=== PATIENT | female | born 1950 | race Caucasian/White ===

== ENCOUNTER 2016-11-12 08:02 | Emergency (ER) | payer OTHER ==
[~2016-11-12] VITALS: Ht 157.5 cm; Wt 72.7 kg
[~2016-11-12 08:02] MED LIST: ASPIR 8181 M1 PO; Aspirin E.C. PO; CHOLESTEROL MED; FISH OIL SOFTG1 EACH PO; LANTUS 10100 UNITS/ SC; LEVAQUIN500 MG PO; LOFIBRA54 MG PO; METFORMIN; METOPROL; NOVOLOG MI100 UNIT/4; QUINAPRIL; SEROQUEL400 MG PO; ZOCOR80 MG PO; [UNRECOGNIZED DRUG - SUPPLY]
[2016-11-12] MEDS ORDERED: ELIQUIS5 MG PO (08:13)
[2016-11-12] MEDS ORDERED: LOPRESSOR25 MG PO (08:14)
[2016-11-12] MEDS ORDERED: NOVOLOG 10100 UNITS/ SC ×2 (08:14→08:16)
[2016-11-12] MEDS ORDERED: LANTUS 10100 UNITS/ SC (08:17)
[2016-11-12 08:20] LABS: POINT-OF-CARE METER ID UU13113702
[2016-11-12 08:45] LABS: EOSINOPHIL (%) 0 % (0-5); HEMATOCRIT 37.1 % (36.0-46.0); IMMATURE GRANULOCYTE (%) 0.5 % (0.0-0.7); IMMATURE GRANULOCYTE COUNT 0.1 K/uL; LYMPHOCYTE COUNT 0.6 K/uL (1.0-2.8); MCH 28.2 PG (29.0-34.0); MCHC 33.7 G/DL (30.0-36.0); MCV 83.7 FL (83-99); MEAN PLAT.VOLUME 9.6 uM^3 (9.5-12.4); MONOCYTE (%) 1.4 % (3-12); MONOCYTE COUNT 0.2 K/uL (0-0.8); NEUTROPHIL (%) 92.6 % (45-76); PLATELET COUNT 154 K/uL (156-360); RBC DIS.WIDTH-CV 14.3 % (11.8-14.6); RBC DIS.WIDTH-SD 43.4 % (39-53); RED BLOOD COUNT 4.43 M/uL (3.80-5.20); WHITE BLOOD COUNT 10.8 K/uL (4.1-10.2)
[2016-11-12 08:55] LABS: CHLORIDE 100 mEq/L (99-109); POTASSIUM 3.6 mEq/L (3.7-5.4); SODIUM 137 mEq/L (136-147)
[2016-11-12 08:57] LABS: GLUCOSE 88 mg/dL (70-99)
[2016-11-12 08:58] LABS: ANION GAP 15 MEQ/L (2-14)
[2016-11-12 09:01] LABS: GFR ESTIMATE (CALCULATED) 53 mL/min/; UREA NITROGEN (BUN) 29 mg/dL (9-23)
[2016-11-12 09:40] LABS: ADD MIUA? YES; BILIRUBIN SMALL; BLOOD LARGE; COLOR AMBER ((YELLOW)); GLUCOSE (STRIP) NEGATIVE; KETONES 5; LEUKOCYTES SMALL; NITRITE NEGATIVE; PROTEIN (STRIP) 30; SPECIFIC GRAVITY 1.021 (1.000-1.030)
[2016-11-12 09:41] LABS: POINT-OF-CARE METER ID UU13113702
[2016-11-12 09:58] LABS: BACTERIA 4+ /HPF; CASTS NONE SEEN /LPF; CRYSTALS NONE SEEN; EPITHELIAL CELLS 2+ /HPF; MUCUS NONE SEEN /LPF; RED BLOOD CELLS 30-40 /HPF (0-5)
[2016-11-12 10:54] LABS: POINT-OF-CARE METER ID UU13113702
[2016-11-12] MEDS ORDERED: CIPRO500 MG PO (11:13)
[2016-11-12 11:37] VITALS: BP 125/67
== END 2016-11-12 11:38 | disposition home or self-care (01) ==
LOC: EME 08:02
PROVIDERS: Emergency Medicine
DX: E11.649 Type 2 diabetes mellitus with hypoglycemia without coma (principal); N39.0 Urinary tract infection, site not specified; E78.5 Hyperlipidemia, unspecified; F31.9 Bipolar disorder, unspecified; Z95.0 Presence of cardiac pacemaker; Z79.82 Long term (current) use of aspirin; Z79.4 Long term (current) use of insulin
CPT/HCPCS: 80048; 81003; 82948; 85025; 87077; 87086; 87186; 99281; 99284

== ENCOUNTER 2016-11-21 18:17 | Inpatient (IN) | payer OTHER ==
[~2016-11-21] VITALS: Ht 157.5 cm; Wt 75.5 kg
[~2016-11-21 18:17] MED LIST changes: +CIPRO500 MG PO; +ELIQUIS5 MG PO; +LOPRESSOR25 MG PO; +NOVOLOG 10100 UNITS/ SC
[2016-11-21 19:23] LABS: HEMATOCRIT 29.1 % (36.0-46.0); MCH 28.8 PG (29.0-34.0); MCV 84.6 FL (83-99); RBC DIS.WIDTH-CV 14.8 % (11.8-14.6); RBC DIS.WIDTH-SD 45.7 % (39-53); WHITE BLOOD COUNT 12.5 K/uL (4.1-10.2)
[2016-11-21 19:25] LABS: INTER. NORMALIZED RATIO 2.5; PROTHROMBIN TIME 28.8 SEC (10.2-12.9)
[2016-11-21 19:28] LABS: CHLORIDE 105 mEq/L (99-109); POTASSIUM 3.9 mEq/L (3.7-5.4); SODIUM 135 mEq/L (136-147)
[2016-11-21 19:30] LABS: GLUCOSE 225 mg/dL (70-99)
[2016-11-21 19:31] LABS: ANION GAP 9 MEQ/L (2-14)
[2016-11-21 19:34] LABS: GFR ESTIMATE (CALCULATED) 44 mL/min/; UREA NITROGEN (BUN) 18 mg/dL (9-23)
[2016-11-21 20:00] LABS: RED BLOOD COUNT 3.44 M/uL (3.80-5.20)
[2016-11-21 20:20] LABS: PLAT.SUFFICIENCY DECREASED
[2016-11-21 20:21] LABS: PLATELET COUNT 91 K/uL (156-360)
[2016-11-21 20:48] LABS: INTER. NORMALIZED RATIO 2.4; PROTHROMBIN TIME 27.1 SEC (10.2-12.9)
[2016-11-21 20:51] LABS: PTT 28.3 SEC (25-37)
[2016-11-21 21:10] VITALS: BP 98/57
[2016-11-21 21:10] LABS: TROP-I INTERPRETATION NEGATIVE; TROPONIN-I 0.03 ng/mL (0.0-0.30)
[2016-11-21] MEDS ORDERED: LANTUS 10100 UNITS/ SC (21:29)
[2016-11-21 21:35] VITALS: BP 98/57
[2016-11-21 23:39] LABS: ADD MIUA? YES; BILIRUBIN NEGATIVE; BLOOD MODERATE; COLOR YELLOW ((YELLOW)); GLUCOSE (STRIP) >=500; KETONES 20; LEUKOCYTES LARGE; NITRITE NEGATIVE; PROTEIN (STRIP) 100; SPECIFIC GRAVITY 1.015 (1.000-1.030)
[2016-11-21 23:52] LABS: BACTERIA 3+ /HPF; EPITHELIAL CELLS 2+ /HPF; HYALINE CASTS 0-5 /LPF; MUCUS 3+ /LPF; RED BLOOD CELLS 15-20 /HPF (0-5); UCUL ADDED? YES; WHITE BLOOD CELLS 40-50 /HPF (0-5)
[2016-11-22 00:09] LABS: POINT-OF-CARE METER ID UU14208753
[2016-11-22 00:10] VITALS: BP 93/55
[2016-11-22 03:31] VITALS: BP 98/54
[2016-11-22 05:44] LABS: HEMATOCRIT 25.9 % (36.0-46.0); MCHC 33.6 G/DL (30.0-36.0); MCV 86.3 FL (83-99); PLATELET COUNT 85 K/uL (156-360); RBC DIS.WIDTH-CV 15.3 % (11.8-14.6); WHITE BLOOD COUNT 8.2 K/uL (4.1-10.2)
[2016-11-22 06:07] LABS: ANION GAP 10 MEQ/L (2-14); CHLORIDE 105 MEQ/L (99-109); GFR ESTIMATE (CALCULATED) 53 mL/min/; GLUCOSE 228 mg/dL (70-99); POTASSIUM 3.5 MEQ/L (3.7-5.4); SAMPLE HEMOLYSIS CHECK 0; SAMPLE ICTERIC CHECK 0; SAMPLE LIPEMIA CHECK 0; SODIUM 137 MEQ/L (136-147); UREA NITROGEN (BUN) 19 mg/dL (9-23)
[2016-11-22 06:11] LABS: TROP-I INTERPRETATION NEGATIVE; TROPONIN-I 0.03 ng/mL (0.0-0.30)
[2016-11-22 06:21] LABS: POINT-OF-CARE METER ID UU14208753
[2016-11-22 08:00] VITALS: BP 127/62
[2016-11-22 12:01] VITALS: BP 126/63
[2016-11-22 15:58] VITALS: BP 118/64
[2016-11-22 18:46] LABS: POINT-OF-CARE METER ID UU14208753
[2016-11-22 19:48] VITALS: BP 121/59
[2016-11-22 22:51] LABS: POINT-OF-CARE METER ID UU14117124
[2016-11-23] VITALS (7 sets, daily range): BP systolic 117–156; BP diastolic 59–80
[2016-11-23 05:18] LABS: HEMATOCRIT 25.7 % (36.0-46.0); MCH 28.5 PG (29.0-34.0); MCHC 33.1 G/DL (30.0-36.0); MCV 86.2 FL (83-99); MEAN PLAT.VOLUME 10.6 uM^3 (9.5-12.4); PLATELET COUNT 101 K/uL (156-360); RBC DIS.WIDTH-CV 15.5 % (11.8-14.6); RED BLOOD COUNT 2.98 M/uL (3.80-5.20); WHITE BLOOD COUNT 7.5 K/uL (4.1-10.2)
[2016-11-23 05:23] LABS: INTER. NORMALIZED RATIO 1.5; PROTHROMBIN TIME 17.3 SEC (10.2-12.9)
[2016-11-23 05:47] LABS: ANION GAP 9 MEQ/L (2-14); CHLORIDE 107 MEQ/L (99-109); GFR ESTIMATE (CALCULATED) > 59 mL/min/; GLUCOSE 231 mg/dL (70-99); POTASSIUM 4.1 MEQ/L (3.7-5.4); SAMPLE HEMOLYSIS CHECK 0; SAMPLE ICTERIC CHECK 0; SAMPLE LIPEMIA CHECK 0; SODIUM 138 MEQ/L (136-147); UREA NITROGEN (BUN) 15 mg/dL (9-23)
[2016-11-23 08:32] LABS: POINT-OF-CARE METER ID UU14188577
[2016-11-23 11:26] LABS: POINT-OF-CARE METER ID UU14188577
[2016-11-23 16:35] LABS: POINT-OF-CARE METER ID UU14117124
[2016-11-23 21:53] LABS: POINT-OF-CARE METER ID UU14188577
[2016-11-24 04:31] VITALS: BP 113/55
[2016-11-24 06:05] LABS: HEMATOCRIT 23.9 % (36.0-46.0); MCH 28.2 PG (29.0-34.0); MCHC 33.1 G/DL (30.0-36.0); MCV 85.4 FL (83-99); MEAN PLAT.VOLUME 10.5 uM^3 (9.5-12.4); PLATELET COUNT 109 K/uL (156-360); RBC DIS.WIDTH-CV 15.2 % (11.8-14.6); RBC DIS.WIDTH-SD 46.9 % (39-53); WHITE BLOOD COUNT 7.5 K/uL (4.1-10.2)
[2016-11-24 06:22] LABS: POINT-OF-CARE METER ID UU14208753
[2016-11-24 06:23] LABS: ANION GAP 9 MEQ/L (2-14); CHLORIDE 103 MEQ/L (99-109); GFR ESTIMATE (CALCULATED) > 59 mL/min/; GLUCOSE 177 mg/dL (70-99); POTASSIUM 3.7 MEQ/L (3.7-5.4); SAMPLE HEMOLYSIS CHECK 0; SAMPLE ICTERIC CHECK 0; SAMPLE LIPEMIA CHECK 0; SODIUM 135 MEQ/L (136-147); UREA NITROGEN (BUN) 10 mg/dL (9-23)
[2016-11-24 06:29] LABS: INTER. NORMALIZED RATIO 1.4; PROTHROMBIN TIME 16.1 SEC (10.2-12.9)
[2016-11-24 06:32] LABS: PTT 29.4 SEC (25-37)
[2016-11-24 08:15] VITALS: BP 161/74
[2016-11-24 12:27] LABS: POINT-OF-CARE METER ID UU13113675
[2016-11-24 13:15] VITALS: BP 122/63
[2016-11-24 16:00] VITALS: BP 121/60
[2016-11-24 16:24] LABS: POINT-OF-CARE METER ID UU14188577
[2016-11-24 19:50] VITALS: BP 112/56
[2016-11-24 19:53] LABS: HEMATOCRIT 21.2 % (36.0-46.0); MCV 86.5 FL (83-99)
[2016-11-24 21:34] LABS: POINT-OF-CARE METER ID UU14188577
[2016-11-24 23:28] VITALS: BP 107/55
[2016-11-25] VITALS (7 sets, daily range): BP systolic 109–150; BP diastolic 51–90
[2016-11-25 06:26] LABS: POINT-OF-CARE METER ID UU14188577
[2016-11-25 09:49] LABS: HEMATOCRIT 24.8 % (36.0-46.0); MCV 86.7 FL (83-99)
== END 2016-11-25 11:05 | disposition short-term general hospital (02) | DRG 493 ==
LOC: EME → EDBD 18:17 → EDOF 20:20 → 3EAST 20:20 → ENRESERV 20:21 → 3EAST 20:56
PROVIDERS: Emergency Medicine; Hospitalist; Internal Medicine; Nurse Practitioner Family
PROC: 0QHJ35Z Insertion of External Fixation Device into Right Fibula, Percutaneous Approach (ICD-10-PCS; principal; 2016-11-24)
PROC: 30233N1 Transfusion of Nonautologous Red Blood Cells into Peripheral Vein, Percutaneous Approach (ICD-10-PCS; 2016-11-25)
DX: S82.251A Displaced comminuted fracture of shaft of right tibia, initial encounter for closed fracture (principal); N39.0 Urinary tract infection, site not specified; S82.451A Displaced comminuted fracture of shaft of right fibula, initial encounter for closed fracture; W01.0XXA Fall on same level from slipping, tripping and stumbling without subsequent striking against object, initial encounter; I95.9 Hypotension, unspecified; R23.8 Other skin changes; E16.2 Hypoglycemia, unspecified; I42.9 Cardiomyopathy, unspecified; I48.0 Paroxysmal atrial fibrillation; I10 Essential (primary) hypertension; E78.5 Hyperlipidemia, unspecified; I25.10 Atherosclerotic heart disease of native coronary artery without angina pectoris; F31.9 Bipolar disorder, unspecified; Y92.009 Unspecified place in unspecified non-institutional (private) residence as the place of occurrence of the external cause; E66.9 Obesity, unspecified; Z86.79 Personal history of other diseases of the circulatory system; Z79.01 Long term (current) use of anticoagulants; Z86.73 Personal history of transient ischemic attack (TIA), and cerebral infarction without residual deficits; Z86.74 Personal history of sudden cardiac arrest; Z95.810 Presence of automatic (implantable) cardiac defibrillator; Z68.30 Body mass index [BMI] 30.0-30.9, adult
CPT/HCPCS: 71010; 73590; 76000; 80048; 81003; 82948; 83605; 84484; 85014; 85018; 85027; 85610; 85730; 86850; 86900; 86901; 86920; 87040; 87077; 87086; 87186; 93005; 99281; 99285; C1713; J0330; J0690; J0696; J1170; J1644; J1815; J2405; J3010; J7030; J7050; J7120; P9016

== ENCOUNTER 2016-12-19 22:16 | Inpatient (IN) | payer OTHER ==
[~2016-12-19] VITALS: Ht 160 cm; Wt 71.3 kg
[2016-12-19 22:52] LABS: HEMATOCRIT 40.9 % (36.0-46.0); MCH 28.1 PG (29.0-34.0); MCHC 33.5 G/DL (30.0-36.0); MEAN PLAT.VOLUME 10.6 uM^3 (9.5-12.4); RBC DIS.WIDTH-CV 15.3 % (11.8-14.6); RBC DIS.WIDTH-SD 46.5 % (39-53); WHITE BLOOD COUNT 10.4 K/uL (4.1-10.2)
[2016-12-19 22:53] LABS: PLATELET COUNT 225 K/uL (156-360); RED BLOOD COUNT 4.87 M/uL (3.80-5.20)
[2016-12-19 23:01] LABS: CHLORIDE 100 mEq/L (99-109); POTASSIUM 3.7 mEq/L (3.7-5.4); SODIUM 135 mEq/L (136-147)
[2016-12-19 23:03] LABS: GLUCOSE 137 mg/dL (70-99)
[2016-12-19 23:04] LABS: ANION GAP 14 MEQ/L (2-14)
[2016-12-19 23:05] LABS: TOTAL BILIRUBIN 1.1 mg/dL (0.0-1.0)
[2016-12-19 23:07] LABS: ALKALINE PHOSPHATASE 110 IU/L (3-129); GFR ESTIMATE (CALCULATED) > 59 mL/min/
[2016-12-19 23:08] LABS: UREA NITROGEN (BUN) 7 mg/dL (9-23)
[2016-12-19 23:26] LABS: TROP-I INTERPRETATION NEGATIVE; TROPONIN-I 0.02 ng/mL (0.0-0.30)
[2016-12-19 23:31] LABS: LIPASE 40 U/L (1.0-51.0)
[2016-12-19 23:47] LABS: ADD MIUA? YES; BILIRUBIN NEGATIVE; BLOOD SMALL; COLOR YELLOW ((YELLOW)); GLUCOSE (STRIP) NEGATIVE; KETONES 5; LEUKOCYTES SMALL; NITRITE POSITIVE; PROTEIN (STRIP) 100; SPECIFIC GRAVITY 1.013 (1.000-1.030); UROBILINOGEN 0.2 MG/DL (0.2-1.0)
[2016-12-19 23:55] LABS: BACTERIA 3+ /HPF; EPITHELIAL CELLS RARE /HPF; MUCUS TRACE /LPF; UCUL ADDED? YES; WHITE BLOOD CELLS TNTC /HPF (0-5)
[2016-12-20] MEDS ORDERED: SEROQUEL100 MG PO (02:45)
[2016-12-20] MEDS ORDERED: COLACE100 MG PO (02:46)
[2016-12-20] MEDS ORDERED: LOVENOX30 MG/0.3 SC (02:47)
[2016-12-20] MEDS ORDERED: ZANTAC150 MG PO (02:48)
[2016-12-20] MEDS ORDERED: SENNA LAX8.6 MG PO (02:49)
[2016-12-20] MEDS ORDERED: FEOSOL325 MG PO (02:50)
[2016-12-20] MEDS ORDERED: TYLENOL REGULA325 MG PO (02:55)
[2016-12-20] MEDS ORDERED: ROXICODONE5 MG PO (02:55)
[2016-12-20 03:43] VITALS: BP 102/73
[2016-12-20 05:37] LABS: HEMATOCRIT 38.9 % (36.0-46.0); MCHC 32.6 G/DL (30.0-36.0); MCV 85.9 FL (83-99); MEAN PLAT.VOLUME 10.2 uM^3 (9.5-12.4); PLATELET COUNT 180 K/uL (156-360); RBC DIS.WIDTH-CV 15.5 % (11.8-14.6); RBC DIS.WIDTH-SD 48.8 % (39-53); RED BLOOD COUNT 4.53 M/uL (3.80-5.20); WHITE BLOOD COUNT 8.4 K/uL (4.1-10.2)
[2016-12-20 05:55] LABS: TROP-I INTERPRETATION NEGATIVE; TROPONIN-I 0.03 ng/mL (0.0-0.30)
[2016-12-20 06:18] LABS: ALKALINE PHOSPHATASE 92 IU/L (3-129); ANION GAP 11 MEQ/L (2-14); CHLORIDE 102 MEQ/L (99-109); GFR ESTIMATE (CALCULATED) > 59 mL/min/; GLUCOSE 134 mg/dL (70-99); POTASSIUM 3.8 MEQ/L (3.7-5.4); SAMPLE HEMOLYSIS CHECK 0; SAMPLE ICTERIC CHECK 0; SAMPLE LIPEMIA CHECK 0; SODIUM 138 MEQ/L (136-147); TOTAL BILIRUBIN 0.8 MG/DL (0.0-1.0); UREA NITROGEN (BUN) 7 mg/dL (9-23)
[2016-12-20 07:39] LABS: POINT-OF-CARE METER ID UU14162513
[2016-12-20 09:45] VITALS: BP 178/82
[2016-12-20 11:45] VITALS: BP 189/94
[2016-12-20] MEDS ORDERED: K-DUR20 MEQ PO (11:49)
[2016-12-20] MEDS ORDERED: ZOFRAN4 MG PO (11:50)
[2016-12-20] MEDS ORDERED: MILK OF MAGN PO (11:51)
[2016-12-20] MEDS ORDERED: MIRALAX17 GM PO (11:51)
[2016-12-20] MEDS ORDERED: DULCOLAX10 MG PR (11:52)
[2016-12-20] MEDS ORDERED: CYANOCOBAL1000 MCG/2 SQ (11:53)
[2016-12-20] MEDS ORDERED: NOVOLOG PE100 UNITS/ SC (11:54)
[2016-12-20 12:34] LABS: POINT-OF-CARE METER ID UU14162513
[2016-12-20 12:41] LABS: TROP-I INTERPRETATION NEGATIVE; TROPONIN-I 0.02 ng/mL (0.0-0.30)
[2016-12-20 15:33] VITALS: BP 179/100
[2016-12-20 17:02] LABS: POINT-OF-CARE METER ID UU13113700
[2016-12-20 21:37] VITALS: BP 140/74
[2016-12-20 21:45] LABS: POINT-OF-CARE METER ID UU13113700
[2016-12-20 23:22] VITALS: BP 157/90
[2016-12-21] VITALS (7 sets, daily range): BP systolic 137–192; BP diastolic 75–84
[2016-12-21 05:42] LABS: BASOPHIL COUNT 0.1 K/uL (0-0.1); EOSINOPHIL (%) 0.4 % (0-5); EOSINOPHIL COUNT 0.1 K/uL (0-0.3); HEMATOCRIT 37.4 % (36.0-46.0); IMMATURE GRANULOCYTE (%) 0.4 % (0.0-0.7); IMMATURE GRANULOCYTE COUNT 0.1 K/uL; INSTRUMENT ABS NEUTROPHIL CT 9.3 K/uL; LYMPHOCYTE COUNT 1.3 K/uL (1.0-2.8); MCH 27.8 PG (29.0-34.0); MCHC 32.1 G/DL (30.0-36.0); MCV 86.6 FL (83-99); MEAN PLAT.VOLUME 10.4 uM^3 (9.5-12.4); MONOCYTE COUNT 0.7 K/uL (0-0.8); NEUTROPHIL (%) 81.5 % (45-76); NEUTROPHIL COUNT 9.3 K/uL (1.8-6.4); PLATELET COUNT 157 K/uL (156-360); RBC DIS.WIDTH-CV 15.4 % (11.8-14.6); RBC DIS.WIDTH-SD 49.2 % (39-53); RED BLOOD COUNT 4.32 M/uL (3.80-5.20); WHITE BLOOD COUNT 11.4 K/uL (4.1-10.2)
[2016-12-21 06:08] LABS: ANION GAP 10 MEQ/L (2-14); CHLORIDE 103 MEQ/L (99-109); GFR ESTIMATE (CALCULATED) > 59 mL/min/; GLUCOSE 154 mg/dL (70-99); POTASSIUM 3.8 MEQ/L (3.7-5.4); SAMPLE HEMOLYSIS CHECK 0; SAMPLE ICTERIC CHECK 0; SAMPLE LIPEMIA CHECK 0; SODIUM 138 MEQ/L (136-147); UREA NITROGEN (BUN) 10 mg/dL (9-23)
[2016-12-21 08:43] LABS: POINT-OF-CARE METER ID UU13113700
[2016-12-21 13:03] LABS: POINT-OF-CARE METER ID UU13113700
[2016-12-21 17:16] LABS: POINT-OF-CARE METER ID UU13113700
[2016-12-21 21:19] LABS: POINT-OF-CARE METER ID UU13113700
[2016-12-22 03:34] VITALS: BP 145/94
[2016-12-22 05:59] LABS: BASOPHIL COUNT 0.1 K/uL (0-0.1); EOSINOPHIL (%) 1.5 % (0-5); EOSINOPHIL COUNT 0.1 K/uL (0-0.3); HEMATOCRIT 36.5 % (36.0-46.0); IMMATURE GRANULOCYTE (%) 0.4 % (0.0-0.7); INSTRUMENT ABS NEUTROPHIL CT 6.2 K/uL; LYMPHOCYTE COUNT 1.3 K/uL (1.0-2.8); MCH 27.7 PG (29.0-34.0); MCHC 32.3 G/DL (30.0-36.0); MCV 85.7 FL (83-99); MEAN PLAT.VOLUME 10.1 uM^3 (9.5-12.4); MONOCYTE (%) 5.3 % (3-12); MONOCYTE COUNT 0.4 K/uL (0-0.8); NEUTROPHIL (%) 76.6 % (45-76); NEUTROPHIL COUNT 6.2 K/uL (1.8-6.4); PLATELET COUNT 124 K/uL (156-360); RBC DIS.WIDTH-CV 15.2 % (11.8-14.6); RED BLOOD COUNT 4.26 M/uL (3.80-5.20); WHITE BLOOD COUNT 8.1 K/uL (4.1-10.2)
[2016-12-22 08:09] VITALS: BP 189/86
[2016-12-22 12:18] VITALS: BP 137/67
[2016-12-22] MEDS ORDERED: CEFTIN500 MG PO (12:32)
[2016-12-22] MEDS ORDERED: AMLODIPINE BESYL5 MG PO (12:32)
[2016-12-22] MEDS ORDERED: LOPRESSOR25 MG PO (12:32)
[2016-12-22 13:15] VITALS: BP 126/72
== END 2016-12-22 15:54 | DRG 690 ==
LOC: EME → EDBD 22:16 → EME 22:16 → EDOF 12-20 01:48 → ENRESERV 12-20 01:51 → 5WEST 12-20 03:31 → CANRESERV 12-21 10:21 → ENRESERV 12-21 10:21 → 5WEST 12-22 15:54
PROVIDERS: Emergency Medicine; Internal Medicine; Student in an Organized Health Care Education/Training Program
DX: N39.0 Urinary tract infection, site not specified (principal); I10 Essential (primary) hypertension; E11.65 Type 2 diabetes mellitus with hyperglycemia; I48.91 Unspecified atrial fibrillation; F31.9 Bipolar disorder, unspecified; E78.5 Hyperlipidemia, unspecified; Z87.440 Personal history of urinary (tract) infections; Z86.73 Personal history of transient ischemic attack (TIA), and cerebral infarction without residual deficits; Z95.810 Presence of automatic (implantable) cardiac defibrillator; Z90.49 Acquired absence of other specified parts of digestive tract
CPT/HCPCS: 80048; 80053; 81003; 82948; 83690; 84484; 85025; 85027; 87086; 93005; 99281; 99285; G0378; J0696; J1650; J2405; J7030; J7050

== ENCOUNTER 2017-04-08 11:03 | Inpatient (IN) | payer OTHER ==
[~2017-04-08] VITALS: Ht 157.5 cm; Wt 57.5 kg
[2017-04-08] VITALS (10 sets, daily range): BP systolic 77–105; BP diastolic 43–57
[~2017-04-08 11:03] MED LIST changes: +AMLODIPINE BESYL5 MG PO; +CEFTIN500 MG PO; +COLACE100 MG PO; +CYANOCOBAL1000 MCG/2 SQ; +DULCOLAX10 MG PR; +FEOSOL325 MG PO; +K-DUR20 MEQ PO; +LOVENOX30 MG/0.3 SC; +MILK OF MAGN PO; +MIRALAX17 GM PO; +NOVOLOG PE100 UNITS/ SC; +ROXICODONE5 MG PO; +SENNA LAX8.6 MG PO; +SEROQUEL100 MG PO; +TYLENOL REGULA325 MG PO; +ZANTAC150 MG PO; +ZOFRAN4 MG PO
[2017-04-08 11:32] LABS: BASOPHIL (%) 0.1 % (0-1); EOSINOPHIL (%) 0 % (0-5); HEMATOCRIT 16.7 % (36.0-46.0); IMMATURE GRANULOCYTE (%) 0.4 % (0.0-0.7); LYMPHOCYTE (%) 4.7 % (15-42); LYMPHOCYTE COUNT 0.4 K/uL (1.0-2.8); MCH 27.1 PG (29.0-34.0); MCHC 32.9 G/DL (30.0-36.0); MCV 82.3 FL (83-99); MONOCYTE (%) 3.6 % (3-12); MONOCYTE COUNT 0.3 K/uL (0-0.8); NEUTROPHIL (%) 91.2 % (45-76); NEUTROPHIL COUNT 8.3 K/uL (1.8-6.4); PLATELET COUNT 148 K/uL (156-360); RBC DIS.WIDTH-CV 16.5 % (11.8-14.6); RBC DIS.WIDTH-SD 49.1 % (39-53); RED BLOOD COUNT 2.03 M/uL (3.80-5.20); WHITE BLOOD COUNT 9.1 K/uL (4.1-10.2)
[2017-04-08 11:33] LABS: HEMOGLOBIN 5.5 G/DL (11.9-15.5)
[2017-04-08 11:35] LABS: PTT 26.5 SEC (25-37)
[2017-04-08 11:47] LABS: BASE EXCESS -3.8 mEq/L (-3 to +3); PCO2 28 mm Hg (35-45); PO2 123 mm Hg (80-100); pH 7.44 (7.35-7.45)
[2017-04-08 11:48] LABS: COMMENTS - BLOOD GASES A+C+; FI02 0.21 %; SITE LR; TOTAL RESP RATE 19 resp/min
[2017-04-08 11:49] LABS: TROP-I INTERPRETATION NEGATIVE; TROPONIN-I 0.01 ng/mL (0.0-0.30)
[2017-04-08 11:56] LABS: ALBUMIN 3.4 g/dL (3.2-4.8); CHLORIDE 96 mEq/L (99-109); SODIUM 128 mEq/L (136-147)
[2017-04-08 11:58] LABS: TOTAL PROTEIN 5.8 g/dL (6.4-8.3)
[2017-04-08 12:00] LABS: TOTAL BILIRUBIN 0.6 mg/dL (0.0-1.0)
[2017-04-08 12:02] LABS: ALKALINE PHOSPHATASE 67 IU/L (3-129); CREATININE 1.8 mg/dL (0.6-1.3); GFR ESTIMATE (CALCULATED) 30 mL/min/
[2017-04-08 12:03] LABS: UREA NITROGEN (BUN) 84 mg/dL (9-23)
[2017-04-08 12:04] LABS: AST (GOT) 7 IU/L (2-34); DIRECT BILIRUBIN 0.4 mg/dL (0.0-0.3)
[2017-04-08 12:05] LABS: ALT (GPT) 6 IU/L (3-49); LIPASE 45 U/L (1.0-51.0)
[2017-04-08 12:06] LABS: GLUCOSE 614 mg/dL (70-99)
[2017-04-08 15:22] LABS: BASE EXCESS -4.4 mEq/L (-3 to +3); BICARBONATE 19.6 mEq/L (22-26); CARBOXY HGB 1.9 % (0-5); METHEMOGLOBIN 0.9 % (0-1.5); PCO2 31 mm Hg (35-45); pH 7.41 (7.35-7.45)
[2017-04-08 15:23] LABS: COMMENTS - BLOOD GASES A+C+; PO2 94 mm Hg (80-100); SITE LR; TOTAL RESP RATE 15 resp/min
[2017-04-08 16:56] LABS: BASOPHIL (%) 0.1 % (0-1); EOSINOPHIL (%) 0 % (0-5); HEMATOCRIT 28.2 % (36.0-46.0); IMMATURE GRANULOCYTE (%) 0.8 % (0.0-0.7); LYMPHOCYTE (%) 6.9 % (15-42); LYMPHOCYTE COUNT 0.8 K/uL (1.0-2.8); MCH 29.4 PG (29.0-34.0); MONOCYTE (%) 5.6 % (3-12); MONOCYTE COUNT 0.7 K/uL (0-0.8); NEUTROPHIL (%) 86.6 % (45-76); PLATELET COUNT 115 K/uL (156-360); RBC DIS.WIDTH-CV 15.6 % (11.8-14.6); RBC DIS.WIDTH-SD 49.1 % (39-53); WHITE BLOOD COUNT 11.5 K/uL (4.1-10.2)
[2017-04-08 16:57] LABS: HEMOGLOBIN 9.6 G/DL (11.9-15.5); MCV 86.5 FL (83-99); RED BLOOD COUNT 3.26 M/uL (3.80-5.20)
[2017-04-08 18:18] LABS: APPEARANCE CLOUDY ((CLEAR)); BILIRUBIN NEGATIVE; BLOOD LARGE; COLOR YELLOW ((YELLOW)); GLUCOSE (STRIP) >=500; KETONES 5; LEUKOCYTES LARGE; NITRITE POSITIVE; PROTEIN (STRIP) 30; SPECIFIC GRAVITY 1.015 (1.000-1.030); UROBILINOGEN 0.2 MG/DL (0.2-1.0)
[2017-04-08 18:25] LABS: GLUCOSE 344 mg/dL (70-99)
[2017-04-08 18:28] LABS: BACTERIA RARE /HPF; EPITHELIAL CELLS NONE SEEN /HPF; MUCUS NONE SEEN /LPF; RED BLOOD CELLS TNTC /HPF (0-5); UCUL ADDED? YES; WHITE BLOOD CELLS 20-30 /HPF (0-5)
[2017-04-08 18:30] LABS: PTT 27.9 SEC (25-37)
[2017-04-08 18:53] LABS: CHLORIDE 106 MEQ/L (99-109); POTASSIUM 3.5 MEQ/L (3.7-5.4); UREA NITROGEN (BUN) 71 mg/dL (9-23)
[2017-04-08 18:57] LABS: CREATININE 1.1 MG/DL (0.6-1.3); GFR ESTIMATE (CALCULATED) 53 mL/min/; SODIUM 137 MEQ/L (136-147)
[2017-04-08 21:31] LABS: CHLORIDE 109 MEQ/L (99-109); POTASSIUM 3.2 MEQ/L (3.7-5.4); SODIUM 139 MEQ/L (136-147)
[2017-04-08 21:47] LABS: GFR ESTIMATE (CALCULATED) 59 mL/min/; GLUCOSE 189 mg/dL (70-99); PHOSPHORUS 2.5 mg/dL (2.5-4.9); UREA NITROGEN (BUN) 64 mg/dL (9-23)
[2017-04-09] VITALS (29 sets, daily range): BP systolic 87–1631; BP diastolic 42–73
[2017-04-09 00:57] LABS: SODIUM 140 mEq/L (136-147)
[2017-04-09 00:59] LABS: GLUCOSE 186 mg/dL (70-99)
[2017-04-09 01:02] LABS: PHOSPHORUS 2.2 mg/dL (2.5-4.9)
[2017-04-09 01:03] LABS: GFR ESTIMATE (CALCULATED) 59 mL/min/
[2017-04-09 01:04] LABS: UREA NITROGEN (BUN) 58 mg/dL (9-23)
[2017-04-09 01:06] LABS: CHLORIDE 112 mEq/L (99-109)
[2017-04-09 04:52] LABS: BASOPHIL (%) 0.2 % (0-1); EOSINOPHIL (%) 0.3 % (0-5); HEMATOCRIT 24.7 % (36.0-46.0); HEMOGLOBIN 8.5 G/DL (11.9-15.5); IMMATURE GRANULOCYTE (%) 0.4 % (0.0-0.7); LYMPHOCYTE (%) 12.2 % (15-42); LYMPHOCYTE COUNT 1.1 K/uL (1.0-2.8); MCH 28.9 PG (29.0-34.0); MCHC 34.4 G/DL (30.0-36.0); MONOCYTE (%) 7.3 % (3-12); MONOCYTE COUNT 0.7 K/uL (0-0.8); NEUTROPHIL (%) 79.6 % (45-76); NEUTROPHIL COUNT 7.4 K/uL (1.8-6.4); PLATELET COUNT 98 K/uL (156-360); RBC DIS.WIDTH-CV 15.8 % (11.8-14.6); RBC DIS.WIDTH-SD 47.8 % (39-53); RED BLOOD COUNT 2.94 M/uL (3.80-5.20); WHITE BLOOD COUNT 9.3 K/uL (4.1-10.2)
[2017-04-09 05:06] LABS: CHLORIDE 113 mEq/L (99-109); SODIUM 140 mEq/L (136-147)
[2017-04-09 05:07] LABS: ALBUMIN 2.8 g/dL (3.2-4.8); CHLORIDE 113 mEq/L (99-109); POTASSIUM 3.6 mEq/L (3.7-5.4); SODIUM 140 mEq/L (136-147)
[2017-04-09 05:08] LABS: GLUCOSE 129 mg/dL (70-99); POTASSIUM 3.7 mEq/L (3.7-5.4)
[2017-04-09 05:09] LABS: GLUCOSE 130 mg/dL (70-99)
[2017-04-09 05:12] LABS: CREATININE 0.9 mg/dL (0.6-1.3); GFR ESTIMATE (CALCULATED) > 59 mL/min/; PHOSPHORUS 1.8 mg/dL (2.5-4.9)
[2017-04-09 05:13] LABS: CREATININE 0.9 mg/dL (0.6-1.3); GFR ESTIMATE (CALCULATED) > 59 mL/min/; PHOSPHORUS 1.8 mg/dL (2.5-4.9); UREA NITROGEN (BUN) 50 mg/dL (9-23)
[2017-04-09 05:14] LABS: UREA NITROGEN (BUN) 49 mg/dL (9-23)
[2017-04-09 05:23] LABS: INTER. NORMALIZED RATIO 2.3
[2017-04-09 09:35] LABS: CHLORIDE 114 MEQ/L (99-109); CREATININE 0.9 MG/DL (0.6-1.3); GFR ESTIMATE (CALCULATED) > 59 mL/min/; GLUCOSE 190 mg/dL (70-99); POTASSIUM 3.6 MEQ/L (3.7-5.4); SODIUM 141 MEQ/L (136-147); UREA NITROGEN (BUN) 46 mg/dL (9-23)
[2017-04-09 09:37] LABS: PHOSPHORUS 1.6 mg/dL (2.5-4.9)
[2017-04-09] MEDS ORDERED: SIMVASTATIN80 MG PO (11:06)
[2017-04-09] MEDS ORDERED: LOPRESSOR50 MG PO (11:06)
[2017-04-09] MEDS ORDERED: QUETIAPINE FUM100 MG PO (11:06)
[2017-04-09] MEDS ORDERED: ELIQUIS5 MG PO (11:07)
[2017-04-09] MEDS ORDERED: OXYCODONE HCL5 MG PO (11:07)
[2017-04-09 11:51] LABS: HEMOGLOBIN A1c (GLYCOHEMOGLOB) 5.9 % (Below 5.7)
[2017-04-09] MEDS ORDERED: NORVASC5 MG PO (13:22)
[2017-04-09] MEDS ORDERED: K-DUR20 MEQ PO (13:23)
[2017-04-09] MEDS ORDERED: NOVOLOG 10100 UNITS/ SC ×2 (13:23→13:24)
[2017-04-09] MEDS ORDERED: LO-DOSE ASPIRIN81 M2 PO (13:24)
[2017-04-09] MEDS ORDERED: LANTUS 10100 UNITS/ SC (13:24)
[2017-04-09] MEDS ORDERED: TUMS500 MG PO (13:25)
[2017-04-09 13:53] LABS: CHLORIDE 113 MEQ/L (99-109); CREATININE 0.9 MG/DL (0.6-1.3); GFR ESTIMATE (CALCULATED) > 59 mL/min/; GLUCOSE 145 mg/dL (70-99); PHOSPHORUS 1.5 mg/dL (2.5-4.9); POTASSIUM 3.5 MEQ/L (3.7-5.4); SODIUM 144 MEQ/L (136-147); UREA NITROGEN (BUN) 40 mg/dL (9-23)
[2017-04-09 15:28] LABS: INTER. NORMALIZED RATIO 1.8
[2017-04-09 15:42] LABS: CHLORIDE 114 MEQ/L (99-109); POTASSIUM 3.6 MEQ/L (3.7-5.4); SODIUM 143 MEQ/L (136-147)
[2017-04-09 15:48] LABS: CREATININE 0.8 MG/DL (0.6-1.3); GFR ESTIMATE (CALCULATED) > 59 mL/min/; GLUCOSE 136 mg/dL (70-99); UREA NITROGEN (BUN) 35 mg/dL (9-23)
[2017-04-09 15:52] LABS: PHOSPHORUS 2.5 mg/dL (2.5-4.9)
[2017-04-09 20:59] LABS: HEMATOCRIT 22.6 % (36.0-46.0); HEMOGLOBIN 7.5 G/DL (11.9-15.5); MCH 28.3 PG (29.0-34.0); MCHC 33.2 G/DL (30.0-36.0); MCV 85.3 FL (83-99); PLATELET COUNT 81 K/uL (156-360); RBC DIS.WIDTH-SD 49.7 % (39-53); RED BLOOD COUNT 2.65 M/uL (3.80-5.20); WHITE BLOOD COUNT 5.8 K/uL (4.1-10.2)
[2017-04-09 21:38] LABS: CHLORIDE 112 MEQ/L (99-109); CREATININE 0.7 MG/DL (0.6-1.3); GFR ESTIMATE (CALCULATED) > 59 mL/min/; GLUCOSE 188 mg/dL (70-99); POTASSIUM 3.3 MEQ/L (3.7-5.4); SODIUM 143 MEQ/L (136-147); UREA NITROGEN (BUN) 26 mg/dL (9-23)
[2017-04-10] VITALS (22 sets, daily range): BP systolic 109–158; BP diastolic 58–90
[2017-04-10 03:43] LABS: BASOPHIL (%) 0.3 % (0-1); EOSINOPHIL COUNT 0.2 K/uL (0-0.3); HEMATOCRIT 26.7 % (36.0-46.0); HEMOGLOBIN 9.2 G/DL (11.9-15.5); IMMATURE GRANULOCYTE (%) 0.4 % (0.0-0.7); LYMPHOCYTE (%) 19.9 % (15-42); LYMPHOCYTE COUNT 1.5 K/uL (1.0-2.8); MCHC 34.5 G/DL (30.0-36.0); MCV 84.2 FL (83-99); MONOCYTE (%) 7.1 % (3-12); MONOCYTE COUNT 0.5 K/uL (0-0.8); NEUTROPHIL (%) 70.3 % (45-76); NEUTROPHIL COUNT 5.2 K/uL (1.8-6.4); PLATELET COUNT 86 K/uL (156-360); RBC DIS.WIDTH-CV 15.1 % (11.8-14.6); RBC DIS.WIDTH-SD 46.2 % (39-53); RED BLOOD COUNT 3.17 M/uL (3.80-5.20); WHITE BLOOD COUNT 7.4 K/uL (4.1-10.2)
[2017-04-10 04:05] LABS: CHLORIDE 109 mEq/L (99-109); POTASSIUM 3.5 mEq/L (3.7-5.4); SODIUM 141 mEq/L (136-147)
[2017-04-10 04:06] LABS: MAGNESIUM 1.4 mg/dL (1.3-2.7)
[2017-04-10 04:07] LABS: GLUCOSE 157 mg/dL (70-99)
[2017-04-10 04:11] LABS: CREATININE 0.7 mg/dL (0.6-1.3); GFR ESTIMATE (CALCULATED) > 59 mL/min/; PHOSPHORUS 2.2 mg/dL (2.5-4.9)
[2017-04-10 04:12] LABS: UREA NITROGEN (BUN) 21 mg/dL (9-23)
[2017-04-10 11:12] LABS: BASOPHIL (%) 0.3 % (0-1); EOSINOPHIL (%) 2.1 % (0-5); EOSINOPHIL COUNT 0.1 K/uL (0-0.3); HEMATOCRIT 27.1 % (36.0-46.0); HEMOGLOBIN 9.3 G/DL (11.9-15.5); IMMATURE GRANULOCYTE (%) 0.3 % (0.0-0.7); LYMPHOCYTE (%) 19.7 % (15-42); LYMPHOCYTE COUNT 1.2 K/uL (1.0-2.8); MCH 29.2 PG (29.0-34.0); MCHC 34.3 G/DL (30.0-36.0); MONOCYTE COUNT 0.4 K/uL (0-0.8); NEUTROPHIL (%) 70.6 % (45-76); NEUTROPHIL COUNT 4.5 K/uL (1.8-6.4); PLATELET COUNT 83 K/uL (156-360); RBC DIS.WIDTH-CV 15.2 % (11.8-14.6); RBC DIS.WIDTH-SD 47.1 % (39-53); RED BLOOD COUNT 3.19 M/uL (3.80-5.20); WHITE BLOOD COUNT 6.3 K/uL (4.1-10.2)
[2017-04-11] VITALS (7 sets, daily range): BP systolic 111–146; BP diastolic 58–82
[2017-04-11 06:30] LABS: BASOPHIL (%) 0.1 % (0-1); EOSINOPHIL (%) 0.1 % (0-5); HEMATOCRIT 30.9 % (36.0-46.0); HEMOGLOBIN 10.5 G/DL (11.9-15.5); IMMATURE GRANULOCYTE (%) 0.4 % (0.0-0.7); LYMPHOCYTE (%) 7.4 % (15-42); LYMPHOCYTE COUNT 0.6 K/uL (1.0-2.8); MCH 28.2 PG (29.0-34.0); MCV 82.8 FL (83-99); MONOCYTE (%) 5.1 % (3-12); MONOCYTE COUNT 0.4 K/uL (0-0.8); NEUTROPHIL (%) 86.9 % (45-76); NEUTROPHIL COUNT 6.8 K/uL (1.8-6.4); PLATELET COUNT 101 K/uL (156-360); RBC DIS.WIDTH-CV 14.6 % (11.8-14.6); RBC DIS.WIDTH-SD 43.8 % (39-53); RED BLOOD COUNT 3.73 M/uL (3.80-5.20); WHITE BLOOD COUNT 7.8 K/uL (4.1-10.2)
[2017-04-11 07:07] LABS: CREATININE 0.7 MG/DL (0.6-1.3); GFR ESTIMATE (CALCULATED) > 59 mL/min/; MAGNESIUM 2.2 mg/dl (1.3-2.7); PHOSPHORUS 2.5 mg/dL (2.5-4.9); POTASSIUM 3.9 MEQ/L (3.7-5.4); UREA NITROGEN (BUN) 13 mg/dL (9-23)
[2017-04-11 07:08] LABS: CHLORIDE 98 MEQ/L (99-109); GLUCOSE 287 mg/dL (70-99); SODIUM 133 MEQ/L (136-147)
[2017-04-12] VITALS (11 sets, daily range): BP systolic 80–113; BP diastolic 46–66
[2017-04-12 06:32] LABS: BASOPHIL (%) 0.3 % (0-1); EOSINOPHIL (%) 3.8 % (0-5); EOSINOPHIL COUNT 0.3 K/uL (0-0.3); HEMOGLOBIN 9.8 G/DL (11.9-15.5); IMMATURE GRANULOCYTE (%) 0.3 % (0.0-0.7); LYMPHOCYTE (%) 18.5 % (15-42); LYMPHOCYTE COUNT 1.3 K/uL (1.0-2.8); MCH 28.7 PG (29.0-34.0); MCHC 33.8 G/DL (30.0-36.0); MCV 84.8 FL (83-99); MONOCYTE (%) 6.4 % (3-12); MONOCYTE COUNT 0.5 K/uL (0-0.8); NEUTROPHIL (%) 70.7 % (45-76); NEUTROPHIL COUNT 5.1 K/uL (1.8-6.4); PLATELET COUNT 89 K/uL (156-360); RBC DIS.WIDTH-CV 14.8 % (11.8-14.6); RBC DIS.WIDTH-SD 45.8 % (39-53); RED BLOOD COUNT 3.42 M/uL (3.80-5.20); WHITE BLOOD COUNT 7.1 K/uL (4.1-10.2)
[2017-04-12 06:54] LABS: CHLORIDE 97 MEQ/L (99-109); CREATININE 0.7 MG/DL (0.6-1.3); GFR ESTIMATE (CALCULATED) > 59 mL/min/; GLUCOSE 208 mg/dL (70-99); POTASSIUM 4.1 MEQ/L (3.7-5.4); SODIUM 136 MEQ/L (136-147); UREA NITROGEN (BUN) 15 mg/dL (9-23)
[2017-04-12 08:37] LABS: HEMATOCRIT 32.4 % (36.0-46.0); HEMOGLOBIN 10.5 G/DL (11.9-15.5); MCV 85.5 FL (83-99)
[2017-04-13] VITALS (8 sets, daily range): BP systolic 98–159; BP diastolic 55–68
[2017-04-13 07:01] LABS: BASOPHIL (%) 0.4 % (0-1); EOSINOPHIL (%) 4.1 % (0-5); EOSINOPHIL COUNT 0.3 K/uL (0-0.3); HEMATOCRIT 28.3 % (36.0-46.0); HEMOGLOBIN 9.4 G/DL (11.9-15.5); IMMATURE GRANULOCYTE (%) 0.4 % (0.0-0.7); LYMPHOCYTE (%) 14.9 % (15-42); LYMPHOCYTE COUNT 1.2 K/uL (1.0-2.8); MCH 28.4 PG (29.0-34.0); MCHC 33.2 G/DL (30.0-36.0); MCV 85.5 FL (83-99); MONOCYTE (%) 6.4 % (3-12); MONOCYTE COUNT 0.5 K/uL (0-0.8); NEUTROPHIL (%) 73.8 % (45-76); NEUTROPHIL COUNT 5.8 K/uL (1.8-6.4); PLATELET COUNT 84 K/uL (156-360); RBC DIS.WIDTH-CV 14.5 % (11.8-14.6); RBC DIS.WIDTH-SD 45.4 % (39-53); RED BLOOD COUNT 3.31 M/uL (3.80-5.20); WHITE BLOOD COUNT 7.8 K/uL (4.1-10.2)
[2017-04-13 07:27] LABS: CHLORIDE 106 MEQ/L (99-109); CREATININE 0.6 MG/DL (0.6-1.3); GFR ESTIMATE (CALCULATED) > 59 mL/min/; GLUCOSE 124 mg/dL (70-99); PHOSPHORUS 2.7 mg/dL (2.5-4.9); POTASSIUM 3.5 MEQ/L (3.7-5.4); SODIUM 141 MEQ/L (136-147); UREA NITROGEN (BUN) 8 mg/dL (9-23)
[2017-04-14 03:26] VITALS: BP 100/53
[2017-04-14 06:20] LABS: BASOPHIL (%) 0.2 % (0-1); EOSINOPHIL (%) 5.7 % (0-5); EOSINOPHIL COUNT 0.3 K/uL (0-0.3); HEMATOCRIT 23.8 % (36.0-46.0); HEMOGLOBIN 7.8 G/DL (11.9-15.5); IMMATURE GRANULOCYTE (%) 0.4 % (0.0-0.7); LYMPHOCYTE (%) 20.3 % (15-42); MCH 28.1 PG (29.0-34.0); MCHC 32.8 G/DL (30.0-36.0); MCV 85.6 FL (83-99); MONOCYTE (%) 6.3 % (3-12); MONOCYTE COUNT 0.3 K/uL (0-0.8); NEUTROPHIL (%) 67.1 % (45-76); NEUTROPHIL COUNT 3.3 K/uL (1.8-6.4); PLATELET COUNT 86 K/uL (156-360); RBC DIS.WIDTH-CV 14.5 % (11.8-14.6); RBC DIS.WIDTH-SD 45.2 % (39-53); RED BLOOD COUNT 2.78 M/uL (3.80-5.20); WHITE BLOOD COUNT 4.9 K/uL (4.1-10.2)
[2017-04-14 06:35] VITALS: BP 126/60
[2017-04-14 06:55] LABS: ALBUMIN 2.5 G/DL (3.2-4.8); ALKALINE PHOSPHATASE 54 IU/L (3-129); ALT (GPT) 7 IU/L (3-49); AST (GOT) 12 IU/L (2-34); CHLORIDE 110 MEQ/L (99-109); CREATININE 0.5 MG/DL (0.6-1.3); GFR ESTIMATE (CALCULATED) > 59 mL/min/; GLUCOSE 131 mg/dL (70-99); POTASSIUM 3.9 MEQ/L (3.7-5.4); SODIUM 140 MEQ/L (136-147); TOTAL BILIRUBIN 0.5 MG/DL (0.0-1.0); TOTAL PROTEIN 4.2 G/DL (6.4-8.3); UREA NITROGEN (BUN) 5 mg/dL (9-23)
[2017-04-14 11:00] VITALS: BP 128/60
[2017-04-14 11:47] LABS: HEMATOCRIT 22.8 % (36.0-46.0); HEMOGLOBIN 7.6 G/DL (11.9-15.5)
[2017-04-14 15:11] VITALS: BP 131/62
[2017-04-14 23:30] VITALS: BP 114/57
[2017-04-15 04:12] VITALS: BP 136/66
[2017-04-15 06:49] LABS: HEMATOCRIT 24.3 % (36.0-46.0); HEMOGLOBIN 8.1 G/DL (11.9-15.5); MCH 28.3 PG (29.0-34.0); MCHC 33.3 G/DL (30.0-36.0); PLATELET COUNT 91 K/uL (156-360); RBC DIS.WIDTH-CV 14.2 % (11.8-14.6); RBC DIS.WIDTH-SD 44.3 % (39-53); RED BLOOD COUNT 2.86 M/uL (3.80-5.20); WHITE BLOOD COUNT 7.1 K/uL (4.1-10.2)
[2017-04-15 07:56] VITALS: BP 117/57
[2017-04-15 10:43] VITALS: BP 94/55
[2017-04-15 12:04] LABS: HEMATOCRIT 23.7 % (36.0-46.0); HEMOGLOBIN 7.9 G/DL (11.9-15.5); MCV 85.6 FL (83-99)
[2017-04-15 16:00] VITALS: BP 97/70
[2017-04-15 19:00] VITALS: BP 103/54
[2017-04-15 23:47] VITALS: BP 121/58
[2017-04-16] VITALS (7 sets, daily range): BP systolic 92–132; BP diastolic 51–73
[2017-04-16 07:12] LABS: BASOPHIL (%) 0.5 % (0-1); EOSINOPHIL (%) 2.9 % (0-5); EOSINOPHIL COUNT 0.2 K/uL (0-0.3); HEMATOCRIT 22.4 % (36.0-46.0); HEMOGLOBIN 7.4 G/DL (11.9-15.5); IMMATURE GRANULOCYTE (%) 0.4 % (0.0-0.7); LYMPHOCYTE (%) 16.2 % (15-42); LYMPHOCYTE COUNT 0.9 K/uL (1.0-2.8); MCH 27.7 PG (29.0-34.0); MCV 83.9 FL (83-99); MONOCYTE (%) 7.4 % (3-12); MONOCYTE COUNT 0.4 K/uL (0-0.8); NEUTROPHIL (%) 72.6 % (45-76); PLATELET COUNT 91 K/uL (156-360); RBC DIS.WIDTH-CV 14.2 % (11.8-14.6); RBC DIS.WIDTH-SD 43.9 % (39-53); RED BLOOD COUNT 2.67 M/uL (3.80-5.20); WHITE BLOOD COUNT 5.6 K/uL (4.1-10.2)
[2017-04-16 07:39] LABS: ALBUMIN 2.8 G/DL (3.2-4.8); ALKALINE PHOSPHATASE 53 IU/L (3-129); ALT (GPT) 6 IU/L (3-49); AST (GOT) 8 IU/L (2-34); CHLORIDE 107 MEQ/L (99-109); CREATININE 0.8 MG/DL (0.6-1.3); GFR ESTIMATE (CALCULATED) > 59 mL/min/; POTASSIUM 3.9 MEQ/L (3.7-5.4); SODIUM 140 MEQ/L (136-147); TOTAL BILIRUBIN 0.4 MG/DL (0.0-1.0); TOTAL PROTEIN 4.5 G/DL (6.4-8.3); UREA NITROGEN (BUN) 11 mg/dL (9-23)
[2017-04-16 07:41] LABS: GLUCOSE 257 mg/dL (70-99)
[2017-04-16] MEDS ORDERED: NOVOLOG 10100 UNITS/ SC (09:32)
[2017-04-16 12:54] LABS: HEMATOCRIT 27.9 % (36.0-46.0); HEMOGLOBIN 9.3 G/DL (11.9-15.5); MCV 86.4 FL (83-99)
== END 2017-04-16 17:30 | DRG 871 ==
LOC: EME 11:03 → 4WEST 12:42 → 5EAST 12:42 → EDOF 12:42 → ENRESERV 12:51 → 4WEST 16:16 → ENRESERV 04-10 13:27 → 5EAST 04-11 01:33
PROVIDERS: Emergency Medicine; Hospitalist; Internal Medicine; Internal Medicine Gastroenterology; Specialist
PROC: 30233N1 Transfusion of Nonautologous Red Blood Cells into Peripheral Vein, Percutaneous Approach (ICD-10-PCS; principal; 2017-04-08)
PROC: 0D568ZZ Destruction of Stomach, Via Natural or Artificial Opening Endoscopic (ICD-10-PCS; 2017-04-09)
PROC: 30233L1 Transfusion of Nonautologous Fresh Plasma into Peripheral Vein, Percutaneous Approach (ICD-10-PCS; 2017-04-09)
PROC: 0DBL8ZX Excision of Transverse Colon, Via Natural or Artificial Opening Endoscopic, Diagnostic (ICD-10-PCS; 2017-04-13)
PROC: 0DBN8ZX Excision of Sigmoid Colon, Via Natural or Artificial Opening Endoscopic, Diagnostic (ICD-10-PCS; 2017-04-13)
DX: A41.9 Sepsis, unspecified organism (principal); E11.10 Type 2 diabetes mellitus with ketoacidosis without coma; D62 Acute posthemorrhagic anemia; I10 Essential (primary) hypertension; E78.5 Hyperlipidemia, unspecified; Z86.73 Personal history of transient ischemic attack (TIA), and cerebral infarction without residual deficits; F31.9 Bipolar disorder, unspecified; N17.9 Acute kidney failure, unspecified; I42.9 Cardiomyopathy, unspecified; Z95.810 Presence of automatic (implantable) cardiac defibrillator; I25.10 Atherosclerotic heart disease of native coronary artery without angina pectoris; I48.0 Paroxysmal atrial fibrillation; K21.9 Gastro-esophageal reflux disease without esophagitis; K31.811 Angiodysplasia of stomach and duodenum with bleeding; Z79.01 Long term (current) use of anticoagulants; I95.9 Hypotension, unspecified; D69.6 Thrombocytopenia, unspecified; K64.8 Other hemorrhoids; K63.5 Polyp of colon; R32 Unspecified urinary incontinence; D68.32 Hemorrhagic disorder due to extrinsic circulating anticoagulants; T45.515A Adverse effect of anticoagulants, initial encounter; Z86.74 Personal history of sudden cardiac arrest
CPT/HCPCS: 36600; 70450; 71045; 80048; 80048 91; 80053; 80069; 81003; 82010; 82248; 82803; 82947 91; 82948; 83036; 83605; 83690; 83735; 84100; 84484; 85014; 85018; 85025; 85025 91; 85027; 85610; 85730; 86850; 86900; 86901; 86920; 87040; 87086; 87641; 88305; 93005; 99281; 99285; C1753; C9113; C9132; J0295; J0692; J1815; J2250; J2405; J3010; J3370; J3475; J3480; J7030; J7040; J7050; P9016; P9017

== ENCOUNTER 2017-04-30 22:37 | Emergency (ER) | payer OTHER ==
[~2017-04-30] VITALS: Ht 157.5 cm; Wt 61.8 kg
[~2017-04-30 22:37] MED LIST changes: +LO-DOSE ASPIRIN81 M2 PO; +LOPRESSOR50 MG PO; +NORVASC5 MG PO; +OXYCODONE HCL5 MG PO; +QUETIAPINE FUM100 MG PO; +SIMVASTATIN80 MG PO; +TUMS500 MG PO
[2017-04-30 23:08] LABS: APPEARANCE SL.HAZY ((CLEAR)); BILIRUBIN NEGATIVE; BLOOD MODERATE; COLOR YELLOW ((YELLOW)); GLUCOSE (STRIP) >=500; KETONES 80; LEUKOCYTES TRACE; NITRITE NEGATIVE; PROTEIN (STRIP) 100; UROBILINOGEN 0.2 MG/DL (0.2-1.0)
[2017-04-30 23:18] LABS: HEMATOCRIT 33.8 % (36.0-46.0); HEMOGLOBIN 11.3 G/DL (11.9-15.5); MCH 27.8 PG (29.0-34.0); MCHC 33.4 G/DL (30.0-36.0); MCV 83.3 FL (83-99); PLATELET COUNT 194 K/uL (156-360); RBC DIS.WIDTH-CV 15.2 % (11.8-14.6); RBC DIS.WIDTH-SD 46.2 % (39-53); RED BLOOD COUNT 4.06 M/uL (3.80-5.20)
[2017-04-30 23:22] LABS: ALBUMIN 3.4 g/dL (3.2-4.8)
[2017-04-30 23:23] LABS: UCUL ADDED? YES
[2017-04-30 23:23] LABS: CHLORIDE 103 mEq/L (99-109); POTASSIUM 3.7 mEq/L (3.7-5.4); SODIUM 135 mEq/L (136-147)
[2017-04-30 23:25] LABS: GLUCOSE 318 mg/dL (70-99); TOTAL PROTEIN 6.5 g/dL (6.4-8.3)
[2017-04-30 23:27] LABS: CARBON DIOXIDE (BICARBONATE) 25.6 MEQ/L (20-31)
[2017-04-30 23:27] LABS: TOTAL BILIRUBIN 0.8 mg/dL (0.0-1.0)
[2017-04-30 23:28] LABS: ALKALINE PHOSPHATASE 143 IU/L (3-129)
[2017-04-30 23:29] LABS: CREATININE 0.8 mg/dL (0.6-1.3); GFR ESTIMATE (CALCULATED) > 59 mL/min/
[2017-04-30 23:30] LABS: AST (GOT) 15 IU/L (2-34); UREA NITROGEN (BUN) 14 mg/dL (9-23)
[2017-04-30 23:32] LABS: ALT (GPT) 14 IU/L (3-49); LIPASE 10 U/L (1.0-51.0)
[2017-05-01 01:45] LABS: TROP-I INTERPRETATION NEGATIVE; TROPONIN-I < 0.01 ng/mL (0.0-0.30)
[2017-05-01] MEDS ORDERED: NORCO 5/3251 TABLET PO (01:53)
[2017-05-01] MEDS ORDERED: ZOFRAN ODT4 MG PO (01:53)
[2017-05-01 02:03] VITALS: BP 103/64
== END 2017-05-01 03:01 ==
LOC: EME 22:37
PROVIDERS: Emergency Medicine
DX: N20.0 Calculus of kidney (principal); E11.65 Type 2 diabetes mellitus with hyperglycemia; Z79.4 Long term (current) use of insulin; E78.5 Hyperlipidemia, unspecified; I10 Essential (primary) hypertension; F41.9 Anxiety disorder, unspecified; Z86.73 Personal history of transient ischemic attack (TIA), and cerebral infarction without residual deficits; Z95.0 Presence of cardiac pacemaker; Z90.49 Acquired absence of other specified parts of digestive tract
CPT/HCPCS: 74177; 80053; 81003; 82010; 82803; 83690; 84484; 85027; 93005; 99281; 99285; J7030

== ENCOUNTER 2017-08-30 14:54 | Inpatient (IN) | payer OTHER ==
[~2017-08-30] VITALS: Ht 160 cm; Wt 56.4 kg
[~2017-08-30 14:54] MED LIST changes: +NORCO 5/3251 TABLET PO; +ZOFRAN ODT4 MG PO
[2017-08-30 15:41] LABS: BASOPHIL (%) 0.2 % (0-1); BASOPHIL COUNT 0.1 K/uL (0-0.1); EOSINOPHIL (%) 0.2 % (0-5); EOSINOPHIL COUNT 0.1 K/uL (0-0.3); HEMOGLOBIN 12.4 G/DL (11.9-15.5); IMMATURE GRANULOCYTE (%) 0.7 % (0.0-0.7); LYMPHOCYTE (%) 4.7 % (15-42); MCH 28.6 PG (29.0-34.0); MCHC 34.4 G/DL (30.0-36.0); MCV 83.1 FL (83-99); MONOCYTE (%) 5.6 % (3-12); MONOCYTE COUNT 1.2 K/uL (0-0.8); NEUTROPHIL (%) 88.6 % (45-76); PLATELET COUNT 228 K/uL (156-360); RBC DIS.WIDTH-CV 12.8 % (11.8-14.6); RBC DIS.WIDTH-SD 39.2 % (39-53); RED BLOOD COUNT 4.33 M/uL (3.80-5.20); WHITE BLOOD COUNT 21.4 K/uL (4.1-10.2)
[2017-08-30 15:51] LABS: CHLORIDE 95 mEq/L (99-109); POTASSIUM 3.2 mEq/L (3.7-5.4); SODIUM 134 mEq/L (136-147)
[2017-08-30 15:57] LABS: CREATININE 1.7 mg/dL (0.6-1.3); GFR ESTIMATE (CALCULATED) 32 mL/min/
[2017-08-30 15:58] LABS: UREA NITROGEN (BUN) 46 mg/dL (9-23)
[2017-08-30 16:04] LABS: GLUCOSE 44 mg/dL (70-99)
[2017-08-30 16:40] LABS: INTER. NORMALIZED RATIO 1.2
[2017-08-30 16:42] LABS: PTT 25.9 SEC (25-37)
[2017-08-30 16:45] LABS: ALBUMIN 3.7 g/dL (3.2-4.8)
[2017-08-30 16:48] LABS: TOTAL PROTEIN 8.2 g/dL (6.4-8.3)
[2017-08-30 16:49] LABS: TOTAL BILIRUBIN 0.6 mg/dL (0.0-1.0)
[2017-08-30 16:51] LABS: ALKALINE PHOSPHATASE 110 IU/L (3-129)
[2017-08-30 16:53] LABS: AST (GOT) 10 IU/L (2-34); DIRECT BILIRUBIN 0.4 mg/dL (0.0-0.3)
[2017-08-30 16:54] LABS: ALT (GPT) 5 IU/L (3-49); LIPASE 30 U/L (1.0-51.0)
[2017-08-30 16:55] LABS: TROP-I INTERPRETATION NEGATIVE; TROPONIN-I < 0.01 ng/mL (0.0-0.30)
[2017-08-30] MEDS ORDERED: NOVOLOG 10100 UNITS/ SC (18:04)
[2017-08-30] MEDS ORDERED: ELIQUIS5 MG PO (18:07)
[2017-08-30] MEDS ORDERED: OMEPRAZOLE20 MG PO (18:07)
[2017-08-30] MEDS ORDERED: LO-DOSE ASPIRIN81 M2 PO (18:08)
[2017-08-30] MEDS ORDERED: ZANTAC150 MG PO (18:10)
[2017-08-30] MEDS ORDERED: CYANOCOBALAM1000 MCG PO (18:10)
[2017-08-30] MEDS ORDERED: IRON18 MG PO (18:12)
[2017-08-30] MEDS ORDERED: COLACE100 MG PO (19:09)
[2017-08-30] MEDS ORDERED: FERRETTS325 MG PO (19:11)
[2017-08-30 20:45] VITALS: BP 1125/60; BP 125/60
[2017-08-30 23:04] VITALS: BP 111/60
[2017-08-31 03:08] VITALS: BP 105/52
[2017-08-31 06:09] LABS: BASOPHIL (%) 0.3 % (0-1); EOSINOPHIL (%) 1.1 % (0-5); EOSINOPHIL COUNT 0.1 K/uL (0-0.3); HEMATOCRIT 26.8 % (36.0-46.0); IMMATURE GRANULOCYTE (%) 0.5 % (0.0-0.7); LYMPHOCYTE (%) 11.2 % (15-42); LYMPHOCYTE COUNT 1.1 K/uL (1.0-2.8); MCH 28.1 PG (29.0-34.0); MCHC 33.6 G/DL (30.0-36.0); MCV 83.8 FL (83-99); MONOCYTE (%) 5.8 % (3-12); MONOCYTE COUNT 0.5 K/uL (0-0.8); NEUTROPHIL (%) 81.1 % (45-76); NEUTROPHIL COUNT 7.6 K/uL (1.8-6.4); RBC DIS.WIDTH-SD 39.3 % (39-53); WHITE BLOOD COUNT 9.4 K/uL (4.1-10.2)
[2017-08-31 06:32] LABS: CHLORIDE 103 MEQ/L (99-109); CREATININE 1.4 MG/DL (0.6-1.3); GFR ESTIMATE (CALCULATED) 40 mL/min/; GLUCOSE 150 mg/dL (70-99); PLAT.SUFFICIENCY ADEQUATE; SODIUM 136 MEQ/L (136-147); UREA NITROGEN (BUN) 39 mg/dL (9-23)
[2017-08-31 06:33] LABS: PLATELET COUNT 141 K/uL (156-360); POTASSIUM 4.1 MEQ/L (3.7-5.4)
[2017-08-31 07:54] VITALS: BP 121/66
[2017-08-31 11:33] VITALS: BP 128/60
[2017-08-31 16:47] VITALS: BP 125/61
[2017-08-31 19:20] VITALS: BP 151/72
[2017-08-31 23:30] VITALS: BP 88/52
[2017-09-01 04:10] VITALS: BP 152/66
[2017-09-01 06:06] LABS: BASOPHIL (%) 0.3 % (0-1); EOSINOPHIL (%) 0.9 % (0-5); EOSINOPHIL COUNT 0.1 K/uL (0-0.3); HEMATOCRIT 30.9 % (36.0-46.0); HEMOGLOBIN 10.1 G/DL (11.9-15.5); IMMATURE GRANULOCYTE (%) 0.8 % (0.0-0.7); LYMPHOCYTE (%) 7.7 % (15-42); LYMPHOCYTE COUNT 0.6 K/uL (1.0-2.8); MCH 27.6 PG (29.0-34.0); MCHC 32.7 G/DL (30.0-36.0); MCV 84.4 FL (83-99); MONOCYTE (%) 4.4 % (3-12); MONOCYTE COUNT 0.4 K/uL (0-0.8); NEUTROPHIL (%) 85.9 % (45-76); NEUTROPHIL COUNT 6.8 K/uL (1.8-6.4); PLATELET COUNT 160 K/uL (156-360); RBC DIS.WIDTH-SD 39.7 % (39-53); RED BLOOD COUNT 3.66 M/uL (3.80-5.20); WHITE BLOOD COUNT 7.9 K/uL (4.1-10.2)
[2017-09-01 06:34] LABS: CHLORIDE 103 MEQ/L (99-109); CREATININE 1.1 MG/DL (0.6-1.3); GFR ESTIMATE (CALCULATED) 53 mL/min/; GLUCOSE 198 mg/dL (70-99); POTASSIUM 4.1 MEQ/L (3.7-5.4); SODIUM 138 MEQ/L (136-147); UREA NITROGEN (BUN) 23 mg/dL (9-23)
[2017-09-01 08:20] LABS: VANCOMYCIN, TROUGH 4.6 MCG/ML (10-20)
[2017-09-01 08:48] VITALS: BP 129/62
[2017-09-01 12:02] VITALS: BP 121/65
[2017-09-01 16:08] VITALS: BP 147/65
[2017-09-01 20:09] VITALS: BP 144/65
[2017-09-01 23:42] VITALS: BP 119/60
[2017-09-02 04:36] VITALS: BP 147/66
[2017-09-02 06:03] LABS: BASOPHIL (%) 0.5 % (0-1); EOSINOPHIL (%) 1.8 % (0-5); EOSINOPHIL COUNT 0.1 K/uL (0-0.3); HEMATOCRIT 29.1 % (36.0-46.0); HEMOGLOBIN 9.5 G/DL (11.9-15.5); IMMATURE GRANULOCYTE (%) 0.8 % (0.0-0.7); LYMPHOCYTE (%) 14.9 % (15-42); MCH 27.6 PG (29.0-34.0); MCHC 32.6 G/DL (30.0-36.0); MCV 84.6 FL (83-99); MONOCYTE COUNT 0.5 K/uL (0-0.8); NEUTROPHIL COUNT 4.8 K/uL (1.8-6.4); PLATELET COUNT 136 K/uL (156-360); RBC DIS.WIDTH-SD 39.9 % (39-53); RED BLOOD COUNT 3.44 M/uL (3.80-5.20); WHITE BLOOD COUNT 6.5 K/uL (4.1-10.2)
[2017-09-02 06:29] LABS: CHLORIDE 104 MEQ/L (99-109); GFR ESTIMATE (CALCULATED) > 59 mL/min/; GLUCOSE 204 mg/dL (70-99); POTASSIUM 4.3 MEQ/L (3.7-5.4); SODIUM 134 MEQ/L (136-147); UREA NITROGEN (BUN) 15 mg/dL (9-23)
[2017-09-02 06:30] LABS: CREATININE 0.6 MG/DL (0.6-1.3)
[2017-09-02 07:14] VITALS: BP 148/68
[2017-09-02 11:25] VITALS: BP 131/65
[2017-09-02 15:52] VITALS: BP 127/62
[2017-09-02 20:15] VITALS: BP 147/67
[2017-09-03] VITALS (7 sets, daily range): BP systolic 104–168; BP diastolic 61–77
[2017-09-03 07:28] LABS: BASOPHIL (%) 0.2 % (0-1); EOSINOPHIL (%) 0.5 % (0-5); EOSINOPHIL COUNT 0.1 K/uL (0-0.3); HEMATOCRIT 28.3 % (36.0-46.0); HEMOGLOBIN 9.4 G/DL (11.9-15.5); IMMATURE GRANULOCYTE (%) 0.7 % (0.0-0.7); LYMPHOCYTE (%) 5.8 % (15-42); LYMPHOCYTE COUNT 0.7 K/uL (1.0-2.8); MCH 27.6 PG (29.0-34.0); MCHC 33.2 G/DL (30.0-36.0); MONOCYTE COUNT 0.7 K/uL (0-0.8); NEUTROPHIL (%) 86.8 % (45-76); NEUTROPHIL COUNT 10.6 K/uL (1.8-6.4); PLATELET COUNT 129 K/uL (156-360); RBC DIS.WIDTH-CV 12.8 % (11.8-14.6); RBC DIS.WIDTH-SD 39.1 % (39-53); RED BLOOD COUNT 3.41 M/uL (3.80-5.20); WHITE BLOOD COUNT 12.2 K/uL (4.1-10.2)
[2017-09-03 08:33] LABS: CHLORIDE 100 MEQ/L (99-109); GFR ESTIMATE (CALCULATED) 53 mL/min/; GLUCOSE 265 mg/dL (70-99); POTASSIUM 3.6 MEQ/L (3.7-5.4); SODIUM 132 MEQ/L (136-147); UREA NITROGEN (BUN) 12 mg/dL (9-23)
[2017-09-03 08:39] LABS: CREATININE 1.1 MG/DL (0.6-1.3)
[2017-09-04 00:32] VITALS: BP 111/61
[2017-09-04 04:26] VITALS: BP 110/62
[2017-09-04 05:54] LABS: BASOPHIL (%) 0.2 % (0-1); EOSINOPHIL (%) 0.7 % (0-5); EOSINOPHIL COUNT 0.1 K/uL (0-0.3); HEMATOCRIT 28.4 % (36.0-46.0); HEMOGLOBIN 9.5 G/DL (11.9-15.5); IMMATURE GRANULOCYTE (%) 0.5 % (0.0-0.7); LYMPHOCYTE (%) 7.6 % (15-42); LYMPHOCYTE COUNT 0.9 K/uL (1.0-2.8); MCH 27.7 PG (29.0-34.0); MCHC 33.5 G/DL (30.0-36.0); MCV 82.8 FL (83-99); MONOCYTE (%) 6.7 % (3-12); MONOCYTE COUNT 0.8 K/uL (0-0.8); NEUTROPHIL (%) 84.3 % (45-76); NEUTROPHIL COUNT 10.4 K/uL (1.8-6.4); PLATELET COUNT 125 K/uL (156-360); RBC DIS.WIDTH-SD 39.3 % (39-53); RED BLOOD COUNT 3.43 M/uL (3.80-5.20); WHITE BLOOD COUNT 12.3 K/uL (4.1-10.2)
[2017-09-04 06:17] LABS: CHLORIDE 102 MEQ/L (99-109); CREATININE 1.1 MG/DL (0.6-1.3); GFR ESTIMATE (CALCULATED) 53 mL/min/; POTASSIUM 3.6 MEQ/L (3.7-5.4); SODIUM 133 MEQ/L (136-147); UREA NITROGEN (BUN) 12 mg/dL (9-23)
[2017-09-04 06:23] LABS: GLUCOSE 82 mg/dL (70-99)
[2017-09-04 08:22] VITALS: BP 160/65
[2017-09-04 11:37] VITALS: BP 91/54
[2017-09-04] MEDS ORDERED: KEFLEX500 MG PO (14:20)
[2017-09-04] MEDS ORDERED: LANTUS 10100 UNITS/ SC (14:21)
[2017-09-04] MEDS ORDERED: NOVOLOG 10100 UNITS/ SC (14:21)
[2017-09-04 14:33] VITALS: BP 100/60
== END 2017-09-04 18:09 | DRG 853 ==
LOC: EME 14:54 → EDOF 19:08 → 2EAST 19:08 → ENRESERV 19:10 → 2EAST 20:31
PROVIDERS: Hospitalist; Internal Medicine; Physician Assistant
PROC: 0Y6P0Z0 Detachment at Right 1st Toe, Complete, Open Approach (ICD-10-PCS; principal; 2017-09-01)
DX: A41.9 Sepsis, unspecified organism (principal); M86.171 Other acute osteomyelitis, right ankle and foot; E11.52 Type 2 diabetes mellitus with diabetic peripheral angiopathy with gangrene; E11.69 Type 2 diabetes mellitus with other specified complication; E11.649 Type 2 diabetes mellitus with hypoglycemia without coma; E11.10 Type 2 diabetes mellitus with ketoacidosis without coma; E11.42 Type 2 diabetes mellitus with diabetic polyneuropathy; E11.621 Type 2 diabetes mellitus with foot ulcer; L97.514 Non-pressure chronic ulcer of other part of right foot with necrosis of bone; N17.9 Acute kidney failure, unspecified; E87.1 Hypo-osmolality and hyponatremia; L03.031 Cellulitis of right toe; L03.115 Cellulitis of right lower limb; R65.20 Severe sepsis without septic shock; E86.0 Dehydration; E87.6 Hypokalemia; I48.0 Paroxysmal atrial fibrillation; I42.9 Cardiomyopathy, unspecified; I10 Essential (primary) hypertension; E78.5 Hyperlipidemia, unspecified; F31.9 Bipolar disorder, unspecified; K21.9 Gastro-esophageal reflux disease without esophagitis; Z86.74 Personal history of sudden cardiac arrest; Z86.73 Personal history of transient ischemic attack (TIA), and cerebral infarction without residual deficits; Z79.82 Long term (current) use of aspirin; Z79.4 Long term (current) use of insulin
CPT/HCPCS: 71046; 73630; 80048; 80076; 80202; 81003; 82948; 83605; 83690; 84484; 85025; 85610; 85730; 86850; 86900; 86901; 87040; 87070; 87075; 87076; 87077; 87147; 87185; 87186; 87205; 88305; 88311; 93005; 93926; 97530 GO; 99281; 99285; J1644; J1815; J2405; J2543; J3010; J3370; J7030; J7050; S0020